=== PATIENT | female | born 2005 | race Caucasian/White ===

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

== ENCOUNTER 2023-03-20 05:26 | Day surgery (SDC) | payer OTHER ==
[2023-03-15 11:05] VITALS: BMI 20.5
[2023-03-20] MEDS ORDERED: MIDAZOLAM HCL 2 MG/2 ML SINGLE DOSE VIAL ONE (08:39)
[2023-03-20] MEDS ORDERED: ONDANSETRON 4 MG/2 ML VIAL ONE (08:39)
[2023-03-20 09:24] VITALS: RESP 18
[2023-03-20 13:06] VITALS: TEMP 97.9
[2023-03-20 13:11] VITALS: BP 101/62; PULSE 70
== END 2023-03-20 11:08 | disposition home or self-care (01) ==
LOC: JASU-SURG 05:26
PROVIDERS: ATTEND Urology
PROC: 0TF3XZZ Fragmentation in Right Kidney Pelvis, External Approach (ICD-10-PCS; principal; 2023-03-20 08:30)
DX: N20.0 Calculus of kidney (principal)
CPT/HCPCS: 81025